=== PATIENT | male | born 1955 | race Caucasian/White ===

== ENCOUNTER 2021-06-09 19:10 | Emergency (ER) | payer MEDICARE, OTHER ==
[2021-06-09 20:46] LABS: RED BLOOD COUNT 4.37 M/UL (4.20-5.50)
[2021-06-09 21:19] LABS: BUN/CREATININE RATIO 19 (0-10)
== END 2021-06-09 22:45 | disposition home or self-care (01) ==
LOC: ER1 19:10
PROVIDERS: Family Medicine
DX: K90.0 Celiac disease (principal); J44.9 Chronic obstructive pulmonary disease, unspecified; F17.200 Nicotine dependence, unspecified, uncomplicated
CPT/HCPCS: 71046; 80053; 82150; 82550; 82553; 83605; 83690; 83880; 84484; 85025; 93005; 94640; 94664; 99284

== ENCOUNTER → 2021-06-12 | Outpatient (CLI) | payer MEDICARE, OTHER | LOC: MRI 06-05 14:00 → EXRD 06-05 15:00 → MRI 12:48 | DX: R56.9 Unspecified convulsions (principal); R55 Syncope and collapse; G31.9 Degenerative disease of nervous system, unspecified; R90.89 Other abnormal findings on diagnostic imaging of central nervous system; H74.8X1 Other specified disorders of right middle ear and mastoid; I65.23 Occlusion and stenosis of bilateral carotid arteries | CPT/HCPCS: 70553; 93880; A9577 ==